=== PATIENT | female | born 1995 | race Caucasian/White ===

== ENCOUNTER → 2017-01-03 | Emergency (ER) | payer OTHER ==
[~2017-01-03] VITALS: Ht 160 cm; Wt 65.8 kg
[~2017-01-03] MED LIST: NASONEX0.05 MG/AC NS; PROMETHAZINE HC25 M1 PO; PROTONIX 40MG T40 MG PO; SINGULAIR10 MG PO; [UNRECOGNIZED DRUG - REMARK]
[2017-01-03 09:42] VITALS: BP 134/77
--- OUTSIDE RECORDS SUMMARY | 2017-01-03 09:52 | External Medical Summary Rpt | CCD ---
Author Author [employer] Organization [employer] Address Unknown Phone Unavailable Purpose Continuity of Care Document - through 2016
--- OUTSIDE RECORDS SUMMARY | 2017-01-03 09:52 | External Medical Summary Rpt | CCD ---
Author Author AILEEN Address Unknown Phone [email or web address] Purpose Continuity of Care Document - through 2016
--- OUTSIDE RECORDS SUMMARY | 2017-01-03 09:52 | External Medical Summary Rpt ---
Author Author AILEEN Walton, [employer] Organization [employer] Address Unknown Phone Unavailable
--- OUTSIDE RECORDS SUMMARY | 2017-01-03 09:52 | External Medical Summary Rpt | CCD ---
Author Author AILEEN Address Unknown Phone [email or web address] Purpose Continuity of Care Document - through 2016
--- OUTSIDE RECORDS SUMMARY | 2017-01-03 09:52 | External Medical Summary Rpt | CCD ---
Demographics Preferred Language Russian Marital Status Unknown Samaritan Affiliation Unknown Race Unknown Ethnic Group Unknown Author Author , AILEEN GALLAGHER Address Unknown Phone Immunization No patient found.
--- OUTSIDE RECORDS SUMMARY | 2017-01-03 09:52 | External Medical Summary Rpt ---
Author Author AILEEN Walton, [employer] Organization [employer] Address Unknown Phone Unavailable
--- OUTSIDE RECORDS SUMMARY | 2017-01-03 09:52 | External Medical Summary Rpt | CCD ---
Demographics Preferred Language Lao Marital Status Unknown Voodoo Affiliation Unknown Race Unknown Ethnic Group Unknown Author Author , AILEEN GALLAGHER Address Unknown Phone Immunization No patient found.
--- NOTE | 2017-01-03 10:22 | Urgent Treatment Center Report ---
History of Present Issue Date/Time Seen by Provider 01/03/17 1021 Visit Reason Pt arrived:Walked Presenting Problem:PT C/O OF HEADACHE AND VOMITING WITH DIARRHEA SINCE LAST NIGHT Location if Accident: Onset of symptoms date/time:01/02/1707/15/1999 or onset unknown for: Have you (or family members/close friends) recently traveled outside the [place]? N If Yes, where/when: Have you had exposure to infectious disease within the past month? TB? Other? Specify: c/o N/V/D starting last night. Started w/ headache late yesterday. Soon after N/ V. Pt thought migraine due to hx of migraines but headache wasn't "that bad". Eventually fell asleep after vomiting once. Woke at 2am w/ bodyaches, chills, vomiting again and this time, wtery diarrhea. Awake most of the night w/ vomiting and diarrhea. Fijunior's mom a MANAGER ESTATE. Called in [facility]. tried that this morning. Not helping although kept down around 30 minutes. ibuprofen helps w/ aches, chills, headache. No known fevers but hasn't monitored. "feeling feverish " and that improves w/ ibuprofen. Hasn't taken anything else. 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 Source patient Exam Limitations no limitations ALLERGIES Coded Allergies: Penicillins (01/03/17) Sulfa (Sulfonamide Antibiotics) (01/03/17) erythromycin base (01/03/17) Home Medications Active Scripts Pantoprazole Sodium (Protonix 40MG TAB) 40 MG PO DAILY #30 Prov: 10/08/10 Reported Medications [ORAL CONTRACEPT] Montelukast Sodium (Singulair) 10 MG PO QHS Mometasone Furoate (Nasonex) 0.05 MG NS DAILY History Medical History General CAD? No Angina: No [place]: No Hypertension? No Hyperlipidemia? Yes CHF? No DVT? No PE? No COPD? No Asthma? Yes Anemia? No GERD? No Gastric ulcers? No Hernia? Yes Hypothyroidism? No CVA? No Seizures? No Diabetes? No UTI? No Stones? No GB Disease: No Nephritic Syndrome? No Asplenia? No Hepatitis? No Migraines? No Cataracts? No Glaucoma? No MRSA? No TB? No Anxiety? No Depression? No Cancer? No More? No Immunization HX DT/Tetanus 5-10 YRS Flu NEVER Pneumonia NEVER Surgical Hx Previous Surgery?Y TAMMY INGUINAL HERNIA PILONIDAL CYST X2 [employer] Hx LMP Now Family History Family HX Diabetes Yes CAD Yes Hypertension Yes Hyperlipidemia Yes Cancer Yes TB No Social History Smoking Hx Smoker: Never Smoker Tobacco: No Alcohol Alcohol: No Review of Systems All Other Systems Reviewed and Negative Constitutional see HPI Eyes denies drainage ENT denies: throat pain. Respiratory denies shortness of breath Cardiovascular denies chest pain, denies palpitations Gastrointestinal see HPI, abdominal pain (cramping, achy) Genitourinary normal menstrual period. denies: dysuria, frequency, hesitancy, hematuria. Musculoskeletal see HPI Skin denies rash Psychiatric/Neurological headache (intermittent) Physical Exam Vital Signs Vital Signs Date Time Temp Pulse Resp B/P Pulse O2 O2 Flow FiO2 Ox Delivery Rate 01/03 942 99.4 129 20 134/77 99 General Appearance normal appearance, no apparent distress, initially in restroom when I tried to see her Eye Exam - bilateral eye normal exam Ear, Nose, Throat normal ENT inspection, moist mucous membranes Neck non-tender, supple Respiratory Status No: respiratory distress, productive cough, non productive cough. Lung Sounds anterior: lungs clear. posterior: lungs clear. bilateral: lungs clear. Cardiovascular no peripheral edema, no murmur, tachycardia (114 on exam) Gastrointestinal soft, no organomegaly, no pulsatile mass, abnormal bowel sounds (hyperactive throughout), no guarding, no rebound, mild tenderness throughout tammy upper quad "because I have been puking it feels like. Just achy." Back no CVA tenderness Neurologic alert, oriented x 3 Mental status normal mood/affect Skin normal color, warm/dry (good tugor) Lymphatic no adenopathy Medical Decision Making LABS/Meds/Orders Pt receiving controlled substance in ED? No Results/Orders Laboratory Tests 01/03/17 0945: Influenza Type A Ag NOT DETECTED, Influenza Type B Ag NOT DETECTED Current Medication Orders Sig/Juanis Start time Last Medication Dose Route Stop Time Status Admin Promethazine HCl 25 MG ONCE ONE 01/03 1045 DC 01/03 IM 01/03 1046 1047 Sodium Chloride 25 ML ONCE ONE 01/03 1045 AC IV 01/03 1059 Promethazine HCl 0 .STK-MED ONE 01/03 1037 DC .ROUTE Orders Procedure Date/time Status [facility] FLU A,B 01/03 0945 Complete Progress [facility] Progress Notes Date 01/03/17 Time 1030 Comment Discussed IVF and labs. Pt agrees to return to clinic for new, worsening or persistant symptoms despite phenergan. Departure Departure Time of Disposition 1048 Disposition DC Home or Self Care(routine) Clinical Impression Primary Impression: Viral gastroenteritis Condition STABLE Referrals NO REFERRAL Follow up with PCP for new, worsening or persistant symptoms or if you can not get in there, return to [facility]. Patient Instructions DI for Viral Gastroenteritis -- Adult Additional Instructions * Monitor Temp. Low grade fevers can be common and often causes aches, chills, and sometimes headaches. Tylenol every 4 hours as needed no more then 5 times a day or 4000mg in 24 hours and/or ibuprofen every 6 hours as needed no more then 3200mg in 24 hours (as long as your primary care doctor has told you that it is ok to take both) for fever/aches/pain. ER if fever no less than 101 despite Tylenol and ibuprofen * Follow up immediately for new or worsening symptoms OR no noticeable improvement over the next 48 hours. * Increase fluids. Water, gatorade, powerade, juice OR pedialyte with limited formula/dairy in children. If you are unable to keep down fluids and are concerned you are loosing more then you are taking in, return for reevaluation. * No food is ok as long as you or your child is drinking. Once ready to eat, start bland. bananas, rice, applesauce, toast * Contagious until no diarrhea, vomiting, fever x 24 hours without medication * Avoid anti-diarrheals unless told otherwise. Best to let the virus run its course. * Phenergan as needed. Remember this will causae drowsiness so no driving, operating machinary or caring for small children after taking this. Remember you had shot of this in clinic so next dose not for at least 6-8 hours. Follow up IMMEDIATELY for new or worsening symptoms OR no noticeable improvement over the next 48 hours. Discharge Counseling Counseled pt/family regarding diagnosis, test results, medications/RX, home care, follow up needs Prescriptions Current Visit Scripts PROMETHAZINE HCL (Promethazine 25mg Tab) 25 MG PO Q8HP PRN nausea or vomiting #9 TAB at 1100
--- NOTE | 2017-01-03 10:22 | Urgent Treatment Center Report ---
History of Present Issue Date/Time Seen by Provider 01/03/17 1021 Visit Reason Pt arrived:Walked Presenting Problem:PT C/O OF HEADACHE AND VOMITING WITH DIARRHEA SINCE LAST NIGHT Location if Accident: Onset of symptoms date/time:01/02/1707/15/1999 or onset unknown for: Have you (or family members/close friends) recently traveled outside the [place]? N If Yes, where/when: Have you had exposure to infectious disease within the past month? TB? Other? Specify: c/o N/V/D starting last night. Started w/ headache late yesterday. Soon after N/ V. Pt thought migraine due to hx of migraines but headache wasn't "that bad". Eventually fell asleep after vomiting once. Woke at 2am w/ bodyaches, chills, vomiting again and this time, wtery diarrhea. Awake most of the night w/ vomiting and diarrhea. Fijunior's mom a DIESEL ELECTRICIAN. Called in [facility]. tried that this morning. Not helping although kept down around 30 minutes. ibuprofen helps w/ aches, chills, headache. No known fevers but hasn't monitored. "feeling feverish " and that improves w/ ibuprofen. Hasn't taken anything else. 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 Source patient Exam Limitations no limitations ALLERGIES Coded Allergies: Penicillins (01/03/17) Sulfa (Sulfonamide Antibiotics) (01/03/17) erythromycin base (01/03/17) Home Medications Active Scripts Pantoprazole Sodium (Protonix 40MG TAB) 40 MG PO DAILY #30 Prov: 10/08/10 Reported Medications [ORAL CONTRACEPT] Montelukast Sodium (Singulair) 10 MG PO QHS Mometasone Furoate (Nasonex) 0.05 MG NS DAILY History Medical History General CAD? No Angina: No [place]: No Hypertension? No Hyperlipidemia? Yes CHF? No DVT? No PE? No COPD? No Asthma? Yes Anemia? No GERD? No Gastric ulcers? No Hernia? Yes Hypothyroidism? No CVA? No Seizures? No Diabetes? No UTI? No Stones? No GB Disease: No Nephritic Syndrome? No Asplenia? No Hepatitis? No Migraines? No Cataracts? No Glaucoma? No MRSA? No TB? No Anxiety? No Depression? No Cancer? No More? No Immunization HX DT/Tetanus 5-10 YRS Flu NEVER Pneumonia NEVER Surgical Hx Previous Surgery?Y TAMMY INGUINAL HERNIA PILONIDAL CYST X2 [employer] Hx LMP Now Family History Family HX Diabetes Yes CAD Yes Hypertension Yes Hyperlipidemia Yes Cancer Yes TB No Social History Smoking Hx Smoker: Never Smoker Tobacco: No Alcohol Alcohol: No Review of Systems All Other Systems Reviewed and Negative Constitutional see HPI Eyes denies drainage ENT denies: throat pain. Respiratory denies shortness of breath Cardiovascular denies chest pain, denies palpitations Gastrointestinal see HPI, abdominal pain (cramping, achy) Genitourinary normal menstrual period. denies: dysuria, frequency, hesitancy, hematuria. Musculoskeletal see HPI Skin denies rash Psychiatric/Neurological headache (intermittent) Physical Exam Vital Signs Vital Signs Date Time Temp Pulse Resp B/P Pulse O2 O2 Flow FiO2 Ox Delivery Rate 01/03 942 99.4 129 20 134/77 99 General Appearance normal appearance, no apparent distress, initially in restroom when I tried to see her Eye Exam - bilateral eye normal exam Ear, Nose, Throat normal ENT inspection, moist mucous membranes Neck non-tender, supple Respiratory Status No: respiratory distress, productive cough, non productive cough. Lung Sounds anterior: lungs clear. posterior: lungs clear. bilateral: lungs clear. Cardiovascular no peripheral edema, no murmur, tachycardia (114 on exam) Gastrointestinal soft, no organomegaly, no pulsatile mass, abnormal bowel sounds (hyperactive throughout), no guarding, no rebound, mild tenderness throughout tammy upper quad "because I have been puking it feels like. Just achy." Back no CVA tenderness Neurologic alert, oriented x 3 Mental status normal mood/affect Skin normal color, warm/dry (good tugor) Lymphatic no adenopathy Medical Decision Making LABS/Meds/Orders Pt receiving controlled substance in ED? No Results/Orders Laboratory Tests 01/03/17 0945: Influenza Type A Ag NOT DETECTED, Influenza Type B Ag NOT DETECTED Current Medication Orders Sig/Juanis Start time Last Medication Dose Route Stop Time Status Admin Promethazine HCl 25 MG ONCE ONE 01/03 1045 DC 01/03 IM 01/03 1046 1047 Sodium Chloride 25 ML ONCE ONE 01/03 1045 AC IV 01/03 1059 Promethazine HCl 0 .STK-MED ONE 01/03 1037 DC .ROUTE Orders Procedure Date/time Status [facility] FLU A,B 01/03 0945 Complete Progress [facility] Progress Notes Date 01/03/17 Time 1030 Comment Discussed IVF and labs. Pt agrees to return to clinic for new, worsening or persistant symptoms despite phenergan. Departure Departure Time of Disposition 1048 Disposition DC Home or Self Care(routine) Clinical Impression Primary Impression: Viral gastroenteritis Condition STABLE Referrals NO REFERRAL Follow up with PCP for new, worsening or persistant symptoms or if you can not get in there, return to [facility]. Patient Instructions DI for Viral Gastroenteritis -- Adult Additional Instructions * Monitor Temp. Low grade fevers can be common and often causes aches, chills, and sometimes headaches. Tylenol every 4 hours as needed no more then 5 times a day or 4000mg in 24 hours and/or ibuprofen every 6 hours as needed no more then 3200mg in 24 hours (as long as your primary care doctor has told you that it is ok to take both) for fever/aches/pain. ER if fever no less than 101 despite Tylenol and ibuprofen * Follow up immediately for new or worsening symptoms OR no noticeable improvement over the next 48 hours. * Increase fluids. Water, gatorade, powerade, juice OR pedialyte with limited formula/dairy in children. If you are unable to keep down fluids and are concerned you are loosing more then you are taking in, return for reevaluation. * No food is ok as long as you or your child is drinking. Once ready to eat, start bland. bananas, rice, applesauce, toast * Contagious until no diarrhea, vomiting, fever x 24 hours without medication * Avoid anti-diarrheals unless told otherwise. Best to let the virus run its course. * Phenergan as needed. Remember this will causae drowsiness so no driving, operating machinary or caring for small children after taking this. Remember you had shot of this in clinic so next dose not for at least 6-8 hours. Follow up IMMEDIATELY for new or worsening symptoms OR no noticeable improvement over the next 48 hours. Discharge Counseling Counseled pt/family regarding diagnosis, test results, medications/RX, home care, follow up needs Prescriptions Current Visit Scripts PROMETHAZINE HCL (Promethazine 25mg Tab) 25 MG PO Q8HP PRN nausea or vomiting #9 TAB at 1100
== END ==
LOC: UTC 09:27
DX: A08.4 Viral intestinal infection, unspecified (principal); E78.5 Hyperlipidemia, unspecified; Z88.0 Allergy status to penicillin; Z88.2 Allergy status to sulfonamides

== ENCOUNTER 2017-02-07 19:45 | Emergency (ER) | payer OTHER ==
[~2017-02-07] VITALS: Ht 162.6 cm; Wt 63.5 kg
--- OUTSIDE RECORDS SUMMARY | 2017-02-07 19:47 | External Medical Summary Rpt ---
Author Author [employer], [employer] Organization [employer] Address Unknown Phone Unavailable Results Influenza virus A+B Ag [Presence] in Unspecified specimen Observa Value Referen Units Interpr Notes Date tion ce etation Range Influen NOT NOT No No No Nov 6 za DETECTE DETECTD informa informa informa 2017 virus A D tion in tion in tion in 9:45 AM Ag source source source [Presen data data data ce] in Unspeci fied specime n INFLUEN NOT NOT No No LOT # Dec 6 ZA B DETECTE DETECTD informa informa @[id number] ANTIGEN D tion in tion in 4 EXP 9:45 AM source source DATE data data @11-27
--- OUTSIDE RECORDS SUMMARY | 2017-02-07 19:47 | External Medical Summary Rpt | CCD ---
Demographics Preferred Language Lao Marital Status Unknown Roman Catholic Affiliation Unknown Race Unknown Ethnic Group Unknown Author Author , AILEEN GALLAGHER Address Unknown Phone Immunization No patient found.
--- OUTSIDE RECORDS SUMMARY | 2017-02-07 19:47 | External Medical Summary Rpt | CCD ---
Author Author , AILEEN GALLAGHER Address Unknown Phone .[email or web address] Purpose Continuity of Care Document - 01-03-2017 through 2016 Results Labs Lab Lab Date Result Refere Interp Status Commen Order Detail nces retati t Range on Rapid influenza A and B antigen detectio (01-03-2017 09:45) INFLUEN NOT NOT complet ZA B 017 DETECTE DETECTD ed ANTIGEN 09:45 D Comment: LOT # @[id number] EXP DATE @2018-11-27 Influen NOT NOT complet za A ag 017 DETECTE DETECTD ed QL 09:45 D NOT DETECTE D L Influenza virus A+B Ag [Presence] in Unspecified specimen (01-03-2017 09:45) Influen NOT NOT complet za 017 DETECTE DETECTD ed virus A 09:45 D Ag [Presen ce] in Unspeci fied specime n INFLUEN NOT NOT complet ZA B 017 DETECTE DETECTD ed ANTIGEN 09:45 D
--- OUTSIDE RECORDS SUMMARY | 2017-02-07 19:47 | External Medical Summary Rpt | CCD ---
Author Author , AILEEN GALLAGHER Address Unknown Phone [email or web address] Purpose Continuity of Care Document - 01-03-2017 through 2016 Results Labs Lab Lab Date Result Refere Interp Status Commen Order Detail nces retati t Range on Rapid influenza A and B antigen detectio (01-03-2017 09:45) INFLUEN NOT NOT complet ZA B 017 DETECTE DETECTD ed ANTIGEN 09:45 D Comment: LOT # @[id number] EXP DATE @2018-11-27 Influen NOT NOT complet [...]
--- OUTSIDE RECORDS SUMMARY | 2017-02-07 19:47 | External Medical Summary Rpt | CCD ---
Demographics Preferred Language Cook Islander Marital Status Unknown Sabianist Affiliation Unknown Race Unknown Ethnic Group Unknown Author Author , AILEEN GALLAGHER Address Unknown Phone Immunization No patient found.
--- OUTSIDE RECORDS SUMMARY | 2017-02-07 19:47 | External Medical Summary Rpt ---
[...] 6 ZA B DETECTE DETECTD informa informa @[id number] ANTIGEN D tion in tion in 4 EXP 9:45 AM source source DATE data data @11-27
--- NOTE | 2017-02-07 20:30 | Urgent Treatment Center Report ---
History of Present Issue Date/Time Seen by Provider 02/07/172019 Visit Reason Pt arrived:Walked Presenting Problem:C/O SORE THROAT, OCAMPO, BILATERAL EAR PAIN Location if Accident: Onset of symptoms date/time:/ or onset unknown for:MEDICAL HX UNKNOWN Have you (or family members/close friends) recently traveled outside the [place]? N If Yes, where/when: Have you had exposure to infectious disease within the past month? TB? Other? Specify: c/o sore throat and tammy ear pain. "dealing with allergies for a week but the sore throat changed yesterday". Sore throat associated w/ PND x1 week but changed and started worsening yesterday. Now today throat feels swollen and tammy ear feel full. No fever. Works as a RN on med/surg. Tylenol, motrin have helped. Was taking antihistamine for allergy symptoms. Allergy to PCN and sulfa. Adament she has had rocephin injections in the past and would like one tonight if strep because works faster. Hx of bad yeast infections w/ cephlosporins "but not the shot" so prefers zpack. Denies allergy to erythromycin base as listed. "I have taken that so many times" Source patient Exam Limitations no limitations ALLERGIES Coded Allergies: Penicillins (01/03/17) Sulfa (Sulfonamide Antibiotics) (01/03/17) erythromycin base (01/03/17) Home Medications Active Scripts PROMETHAZINE HCL (Promethazine 25mg Tab) 25 MG PO Q8HP PRN nausea or vomiting #9 TAB Prov: 01/03/17 Pantoprazole Sodium (Protonix 40MG TAB) 40 MG PO DAILY #30 Prov: 10/08/10 Reported Medications [ORAL CONTRACEPT] Montelukast Sodium (Singulair) 10 MG PO QHS Mometasone Furoate (Nasonex) 0.05 MG NS DAILY History Medical History General CAD? No Angina: No [place]: No Hypertension? No Hyperlipidemia? Yes CHF? No DVT? No PE? No COPD? No Asthma? Yes Anemia? No GERD? No Gastric ulcers? No GI Bleed? No Hernia? Yes Thyroid Problems? No Hypothyroidism? No CVA? No Seizures? No Diabetes? No Renal Insuffiency? No UTI? No Stones? No BPH? No GB Disease: No Nephritic Syndrome? No Asplenia? No Hepatitis? No Sickle Cell Disease? No Arthritis? No Migraines? No Cataracts? No Glaucoma? No MRSA? No HIV? No TB? No Anxiety? No Depression? No Cancer? No More? No Immunization HX DT/Tetanus 5-10 YRS Flu NEVER Pneumonia NEVER Surgical Hx Previous Surgery?Y TAMMY INGUINAL HERNIA PILONIDAL CYST X2 Family History Family HX Diabetes Yes CAD Yes Hypertension Yes Hyperlipidemia Yes Cancer Yes TB No Social History Smoking Hx Smoker: Never Smoker Tobacco: No Alcohol Alcohol: No Review of Systems All Other Systems Reviewed and Negative Constitutional see HPI, denies chills, denies malaise Eyes denies drainage ENT see HPI, nose discharge. denies: ear discharge, nose congestion, throat swelling. Respiratory denies cough, denies shortness of breath Gastrointestinal denies no symptoms reported Musculoskeletal denies joint pain Skin denies rash Psychiatric/Neurological denies headache Physical Exam Vital Signs Vital Signs Date Time Temp Pulse Resp B/P Pulse O2 O2 Flow FiO2 Ox Delivery Rate 02/07 2019 98.9 96 18 123/72 98 General Appearance normal appearance, no apparent distress Eye Exam - bilateral eye normal exam Ear, Nose, Throat pharyngeal erythema, tammy EACs and nares normal Neck non-tender, supple Respiratory Status No: respiratory distress, productive cough, non productive cough. Lung Sounds anterior: lungs clear. posterior: lungs clear. bilateral: lungs clear. Cardiovascular regular rate/rhythm, no peripheral edema, no murmur Neurologic alert, oriented x 3 Mental status normal mood/affect Skin normal color, warm/dry Lymphatic no adenopathy Medical Decision Making LABS/Meds/Orders Pt receiving controlled substance in ED? No Results/Orders Laboratory Tests 02/07/17 2018: Group A Strep Screen DETECTED Current Medication Orders Sig/Juanis Start time Last Medication Dose Route Stop Time Status Admin Ceftriaxone Sodium 0 .STK-MED ONE 02/07 2045 DCr .ROUTE Lidocaine HCl 0 .STK-MED ONE 02/07 2045 DC .ROUTE Ceftriaxone Sodium 1 GM ONCE ONE 02/07 2030 DCr IM 02/07 2031 Lidocaine HCl 0 ONCE ONE 02/07 2030 DC IM 02/07 2031 Orders Procedure Date/time Status [facility] STREP SCREEN 02/07 2018 Complete Departure Departure Time of Disposition 2049 Disposition DC Home or Self Care(routine) Clinical Impression Primary Impression: Strep throat Condition STABLE Referrals NO REFERRAL Follow up with primary care IMMEDIATELY for new or worsening symptoms OR no noticeable improvement over the next 24-48 hours. 911 for difficulty breathing or swallowing Patient Instructions DI for Strep Throat Additional Instructions * Start antibiotic DARLENE and be sure to take as ordered for the FULL length of time although you should start to feel better in 24-48 hours. * change toothbrush and toothpaste 24-48 hours after starting antibiotic * Monitor Temp. Tylenol every 4 hours as needed no more then 5 times a day or 4000mg in 24 hours and/or ibuprofen every 6 hours as needed no more then 3200mg in 24 hours (as long as your primary care doctor has told you that it is ok to take both) for fever/aches/pain. ER if fever no less than 101 despite tylenol and Ibuprofen * Encourage fluids, water, gatorade, powerade, pedialyte if /toddler/child * cold fluids, popsicles, ice cream feel good * you are contagious until you have taken the antibiotic for 24 hours. No school tomorrow. * Avoid kissing anyone, including parents. No eating or drinking after anyone. You are contagious. Discharge Counseling Counseled pt/family regarding diagnosis, test results, medications/RX, home care, follow up needs Prescriptions Current Visit Scripts Azithromycin (Zithromycin (Z-TESHA) 250MG Tab) 250 MG PO DAILY #6 TAB TAKE TWO (2) TABLETS ON DAY 1, THEN ONE (1) TABLET DAY #2 THRU #5 at 2052
[2017-02-07] MEDS ORDERED: ZITHROMAX Z PA250 MG PO (20:53)
[2017-02-07 21:18] VITALS: BP 123/72
== END 2017-02-07 21:18 | disposition home or self-care (01) ==
LOC: UTC 19:45
DX: J02.0 Streptococcal pharyngitis (principal); B95.0 Streptococcus, group A, as the cause of diseases classified elsewhere